=== PATIENT | male | born 1945 | race Caucasian/White ===

== ENCOUNTER → 2018-02-12 | Outpatient (CLI) | payer BC ==
[~2018-02-12] MED LIST: AMLO5CAP2 PO; BICA50TA40 PO; GADAVIST IV PRN; SIMV20TA2 PO; areds
--- NOTE | 2018-02-12 12:24 | DIAGNOSTIC IMAGING REPORT ---
PROSTATE/PELVIS MRI COMBO CLINICAL HISTORY: 72 years-old Male presenting with PROSTATE CA. PSA 0.09 ng/mL. TECHNIQUE: Multisequence, multiplanar MR imaging of the prostate was performed before and after the administration of intravenous contrast. IV contrast: 10 cc of Gadavist. COMPARISON: None. FINDINGS: The patient is status post prostatectomy. No evidence for recurrent or residual disease within the surgical bed. Bladder: Normal. Bowel: Visualized portion of the rectum normal. Peritoneum: No free fluid in the pelvis. Lymph nodes: No lymphadenopathy in the visualized portion of the pelvis. Vasculature: Iliac vessels patent. Abdominal wall: Small bilateral fat-containing inguinal hernias. Osseous structures: Normal bone marrow signal intensity. IMPRESSION: Status post prostatectomy. No evidence for recurrent or metastatic disease within the visualized pelvis. Electronically signed by: Jurgen Roland M.D. 02/12/2018 12:23 PM Dictated Date/Time: 02/12/2018 12:17 PM
== END | disposition home or self-care (01) ==
LOC: C.MRIBC 11:02
PROVIDERS: ATTEND Physician Assistant Medical
DX: C61 Malignant neoplasm of prostate (principal)